=== PATIENT | male | born 1950 | race Caucasian/White ===

== ENCOUNTER 2020-02-14 14:28 | Inpatient (IN) | payer BC, OTHER, MEDICAID, SELFPAY ==
[~2020-02-14] VITALS: Ht 175.3 cm; Wt 74.8 kg
[2020-02-14] MEDS ORDERED: LORazepam 2 MG/ML VIAL IVP ONE (14:45)
[2020-02-14] MEDS ORDERED: levETIRAcetam 1,000 MG IV BAG 100 ML IV ONE (14:45)
[2020-02-14] MEDS ORDERED: NACL 0.9% 1,000 ML IV ONE (14:45)
[2020-02-14 14:56] VITALS: BP_SYST 91
[2020-02-14 15:24] LABS: BASOPHILS # (AUTO) 0.1 K/uL (0.0-0.2); BASOPHILS % (AUTO) 0.4 % (0.0-2.0); EOSINOPHILS % (AUTO) 0.2 % (0.0-4.0); HEMATOCRIT 41.3 % (36-54); HEMOGLOBIN 13.4 g/dL (14.0-18.0); LYMPHOCYTES # (AUTO) 0.5 K/uL (1.0-5.5); LYMPHOCYTES % (AUTO) 3.8 % (20.5-51.5); MEAN CORPUSCULAR HEMOGLOBIN 29 pg (27-31); MEAN CORPUSCULAR HGB CONC 32 % (32-36); MEAN CORPUSCULAR VOLUME 90 fL (79.0-98.0); MONOCYTES # (AUTO) 0.6 K/uL (0.0-1.0); MONOCYTES % (AUTO) 4.2 % (1.7-9.3); NEUTROPHILS # (AUTO) 12.1 K/uL (1.8-7.7); NEUTROPHILS % (AUTO) 91.4 % (40.0-70.0); PLATELET COUNT (AUTO) 284 K/uL (130-430); RED BLOOD CELL COUNT(AUTO) 4.59 MIL/uL (4.2-6.2); RED CELL DISTRIBUTION WIDTH 13.4 % (9.0-15.0); WHITE BLOOD COUNT (AUTO) 13.2 K/uL (4.8-10.8)
[2020-02-14 15:34] LABS: ANION GAP 7 (5-15); CALCIUM 9.4 mg/dL (8.4-11.0); CHLORIDE 101 mmol/L (98-107); GLUCOSE 120 mg/dL (70-99); POTASSIUM 4.6 mmol/L (3.5-5.1); SODIUM SERUM 135 mmol/L (136-145); UREA NITROGEN, BLOOD 20 mg/dL (8-21)
[2020-02-14 15:35] LABS: INR 1.1 (0.80-1.20)
[2020-02-14 15:38] LABS: GFR AFRICAN AMERICAN 108 mL/min (>90)
[2020-02-14 15:40] LABS: ALANINE AMINOTRANSFERASE 27 U/L (12-78); ASPARTATE AMINOTRANSFERASE 15 U/L (10-37); TOTAL BILIRUBIN 0.4 mg/dL (0.0-1.0)
[2020-02-14 15:41] LABS: ALCOHOL, BLOOD < 3 mg/dL (<10)
[2020-02-14] MEDS ORDERED: ENOXAPARIN SODIUM 40 MG/0.4 ML SYRINGE SUBCUT ONE (16:00)
[2020-02-14] MEDS ORDERED: LEVOFLOXACIN 500 MG/D5W 100 ML IV ONE (16:15)
[2020-02-14] MEDS ORDERED: cefTRIAXone 1 GM in D5W 50 ML IV ONE (16:15)
[2020-02-14] MEDS ORDERED: cefTRIAXone 1 GM VIAL ONE (17:10)
[2020-02-14] MEDS ORDERED: ONDANSETRON HCL 4 MG/2 ML VIAL IVP PRN (17:30)
[2020-02-14] MEDS ORDERED: ACETAMINOPHEN 500 MG TABLET PO PRN (17:30)
[2020-02-14] MEDS ORDERED: LORazepam 2 MG/ML VIAL ONE (17:35)
[2020-02-14 22:00] LABS: BILIRUBIN,URINE NEGATIVE (NEGATIVE); BLOOD, URINE 1+ (NEGATIVE); COLOR,URINE YELLOW (YELLOW); GLUCOSE,URINE NEGATIVE (NEGATIVE); KETONES,URINE TRACE (NEGATIVE); LEUKOCYTE ESTERASE ,URINE 2+ (NEGATIVE); NITRITE, URINE POSITIVE (NEGATIVE); PH,URINE 5.5 (5.0-8.0); PROTEIN URINE TRACE (NEGATIVE); UROBILINOGEN,URINE 0.2 (0.2-1.0)
[2020-02-14] MEDS: PIPERACILLIN/TAZO 4.5 GM in NS 100 ML IV SCH (22:00)
[2020-02-14 22:09] LABS: CLARITY/URINE HAZY (CLEAR)
[2020-02-14 22:11] LABS: BARBITURATE, URINE NEGATIVE (NEG <=200); BENZODIAZEPINE, URINE POSITIVE (NEG <=150); CANNABINOID, URINE NEGATIVE (NEG <=50); COCAINE, URINE NEGATIVE (NEG <=150); METHAMPHETAMINES SCREEN,URINE NEGATIVE (NEG <=500); OPIATE, URINE NEGATIVE (NEG <=100); PHENCYCLIDINE SCREEN,URINE NEGATIVE (NEG <=25); UR TRICYCLIC ANTIDEPRESSANTS NEGATIVE (NEG <=300); URINE AMPHETAMINE NEGATIVE (NEG <=500); URINE METHADONE NEGATIVE (NEG <=200); URINE OXYCODONE SCREEN NEGATIVE (NEG <=100); URINE PROPOXYPHENE SCREEN NEGATIVE (NEG <=300)
[2020-02-14 22:12] LABS: BACTERIA,URINE MODERATE /HPF (None Seen); MUCUS,URINE None Seen /LPF (None Seen); WBC,URINE 50-80 /HPF (0-3)
[2020-02-14] MEDS ORDERED: PIPERACILLIN/TAZOBACTAM 4.5 GM/VIAL (ZOSYN) IV ONE (22:14)
[2020-02-14 22:20] VITALS: BP_SYST 114
[2020-02-15] MEDS ORDERED: NACL 0.9% 1,000 ML IV ONE (05:30)
[2020-02-15] MEDS ORDERED: LORazepam 2 MG/ML VIAL IVP PRN (05:30)
[2020-02-15] MEDS ORDERED: IPRA12.9 INH ×2 (07:19)
[2020-02-15] MEDS ORDERED: METO25TA6 GT (07:19)
[2020-02-15] MEDS ORDERED: LEVE100S GT (07:19)
[2020-02-15] MEDS ORDERED: LISI-600 GT (07:19)
[2020-02-15] MEDS ORDERED: FOLI-43 GT (07:19)
[2020-02-15] MEDS ORDERED: MULT-1100 GT (07:19)
[2020-02-15] MEDS ORDERED: FAMO20TA8 GT (07:19)
[2020-02-15] MEDS ORDERED: DIGO125T79 GT (07:19)
[2020-02-15] MEDS ORDERED: LACT1CAP71 GT (07:23)
[2020-02-15] MEDS ORDERED: TERA10CA4 GT (07:23)
[2020-02-15] MEDS ORDERED: ACET-2165 GT (07:23)
[2020-02-15] MEDS ORDERED: AMIN30LI2 GT (07:23)
[2020-02-15] MEDS ORDERED: ASCO500T20 GT (07:23)
[2020-02-15] MEDS ORDERED: ACET-2634 GT (07:23)
[2020-02-15] MEDS ORDERED: levETIRAcetam 500 MG in NS 100 ML IV SCH (09:00)
[2020-02-15] MEDS: KCL 20 mEq in D5/0.45NS 1000mL 1,000 ML IV SCH (10:20)
[2020-02-15] MEDS: PIPERACILLIN/TAZO 4.5 GM in NS 100 ML IV SCH ×3 (10:28→21:28)
[2020-02-15 13:03] LABS: BASOPHILS % (AUTO) 0.7 % (0.0-2.0); EOSINOPHILS % (AUTO) 0.4 % (0.0-4.0); HEMATOCRIT 31.4 % (36-54); HEMOGLOBIN 10.2 g/dL (14.0-18.0); LYMPHOCYTES # (AUTO) 0.7 K/uL (1.0-5.5); LYMPHOCYTES % (AUTO) 11.1 % (20.5-51.5); MEAN CORPUSCULAR HEMOGLOBIN 30 pg (27-31); MEAN CORPUSCULAR HGB CONC 32 % (32-36); MEAN CORPUSCULAR VOLUME 91 fL (79.0-98.0); MONOCYTES # (AUTO) 0.6 K/uL (0.0-1.0); MONOCYTES % (AUTO) 9.4 % (1.7-9.3); NEUTROPHILS # (AUTO) 5.3 K/uL (1.8-7.7); NEUTROPHILS % (AUTO) 78.4 % (40.0-70.0); PLATELET COUNT (AUTO) 191 K/uL (130-430); RED BLOOD CELL COUNT(AUTO) 3.45 MIL/uL (4.2-6.2); RED CELL DISTRIBUTION WIDTH 13.2 % (9.0-15.0)
[2020-02-15 13:07] LABS: WHITE BLOOD COUNT (AUTO) 6.7 K/uL (4.8-10.8)
[2020-02-15 13:24] LABS: CALCIUM 7.6 mg/dL (8.4-11.0); CREATININE 0.62 mg/dL (0.55-1.30); POTASSIUM 3.5 mmol/L (3.5-5.1)
[2020-02-15 13:26] LABS: ALBUMIN 2.3 g/dL (3.4-4.8); TOTAL BILIRUBIN 0.5 mg/dL (0.0-1.0)
[2020-02-15] MEDS ORDERED: ACETAMINOPHEN 500 MG TABLET GT PRN (13:45)
[2020-02-15] MEDS ORDERED: IPRATROPIUM BROM 0.5 MG/2.5 ML VIAL.NEB (ATROVENT) INH PRN (14:15)
[2020-02-15] MEDS ORDERED: FOLIC ACID 1 MG TABLET GT ONE (15:00)
[2020-02-15] MEDS ORDERED: METOPROLOL TARTRATE 25 MG TABLET GT ONE (15:00)
[2020-02-15] MEDS ORDERED: FAMOTIDINE 20 MG TABLET GT ONE (15:00)
[2020-02-15] MEDS ORDERED: ASPIRIN 81 MG TAB.CHEW GT ONE (15:00)
[2020-02-15] MEDS: IPRATROPIUM BROM 0.5 MG/2.5 ML VIAL.NEB (ATROVENT) INH SCH ×2 (16:09→18:47)
[2020-02-15] MEDS: LevETIRAcetam 500 MG/5 ML UDC ORAL LIQUID GT SCH (18:27)
[2020-02-15] MEDS: METOPROLOL TARTRATE 25 MG TABLET GT SCH (20:05)
[2020-02-16] MEDS: KCL 20 mEq in D5/0.45NS 1000mL 1,000 ML IV SCH ×2 (02:30→22:38)
[2020-02-16] MEDS ORDERED: PIPERACILLIN/TAZOBACTAM 4.5 GM/VIAL (ZOSYN) IV ONE (03:00)
[2020-02-16] MEDS ORDERED: KCL 20 mEq in D5/0.45NS 1000mL 1,000 ML IV ONE (03:00)
[2020-02-16] MEDS: LevETIRAcetam 500 MG/5 ML UDC ORAL LIQUID GT SCH ×3 (05:40→12:00)
[2020-02-16] MEDS: PIPERACILLIN/TAZO 4.5 GM in NS 100 ML IV SCH ×3 (05:40→22:38)
[2020-02-16] MEDS: IPRATROPIUM BROM 0.5 MG/2.5 ML VIAL.NEB (ATROVENT) INH SCH ×4 (07:20→19:15)
[2020-02-16 08:00] VITALS: BP_SYST 117
[2020-02-16 08:33] LABS: ALBUMIN 2.6 g/dL (3.4-4.8); CALCIUM 8.9 mg/dL (8.4-11.0); TOTAL BILIRUBIN 0.5 mg/dL (0.0-1.0)
[2020-02-16] MEDS ORDERED: ASPIRIN 81 MG TAB.CHEW PO SCH (09:00)
[2020-02-16 09:06] LABS: CREATININE 0.2 mg/dL (0.55-1.30)
[2020-02-16] MEDS: FOLIC ACID 1 MG TABLET GT SCH (10:03)
[2020-02-16] MEDS: METOPROLOL TARTRATE 25 MG TABLET GT SCH ×2 (10:03→22:36)
[2020-02-16] MEDS: FAMOTIDINE 20 MG TABLET GT SCH (10:03)
[2020-02-16] MEDS: ASPIRIN 81 MG TAB.CHEW GT SCH (10:03)
[2020-02-16 12:00] VITALS: BP_SYST 115
[2020-02-16] MEDS: AMIODARONE HCL 200 MG TABLET PO SCH ×2 (14:00→22:37)
[2020-02-16] MEDS ORDERED: METOPROLOL TARTRATE 5 MG/5 ML VIAL IVP ONE (14:15)
[2020-02-16 16:00] VITALS: BP_SYST 113
[2020-02-16] MEDS ORDERED: METOPROLOL TARTRATE 50 MG TABLET ONE (19:04)
[2020-02-16 20:00] VITALS: BP_SYST 109
[2020-02-16] MEDS: levETIRAcetam 1,500 MG in NS 100 ML IV SCH (22:37)
[2020-02-17 01:02] VITALS: BP_SYST 112
[2020-02-17] MEDS: PIPERACILLIN/TAZO 4.5 GM in NS 100 ML IV SCH (05:02)
[2020-02-17] MEDS: AMIODARONE HCL 200 MG TABLET PO SCH ×3 (05:04→22:10)
[2020-02-17] MEDS: IPRATROPIUM BROM 0.5 MG/2.5 ML VIAL.NEB (ATROVENT) INH SCH ×4 (07:13→19:20)
[2020-02-17 07:30] LABS: ALBUMIN 2.5 g/dL (3.4-4.8); CALCIUM 8.5 mg/dL (8.4-11.0); CREATININE 0.73 mg/dL (0.55-1.30); POTASSIUM 3.6 mmol/L (3.5-5.1); TOTAL BILIRUBIN 0.4 mg/dL (0.0-1.0)
[2020-02-17 07:53] LABS: BASOPHILS # (AUTO) 0.1 K/uL (0.0-0.2); BASOPHILS % (AUTO) 0.6 % (0.0-2.0); EOSINOPHILS # (AUTO) 0.1 K/uL (0.0-0.4); HEMATOCRIT 36.3 % (36-54); HEMOGLOBIN 12.1 g/dL (14.0-18.0); LYMPHOCYTES % (AUTO) 10.3 % (20.5-51.5); MEAN CORPUSCULAR HEMOGLOBIN 30 pg (27-31); MEAN CORPUSCULAR HGB CONC 33 % (32-36); MEAN CORPUSCULAR VOLUME 91 fL (79.0-98.0); MONOCYTES # (AUTO) 1.2 K/uL (0.0-1.0); MONOCYTES % (AUTO) 11.9 % (1.7-9.3); NEUTROPHILS # (AUTO) 7.4 K/uL (1.8-7.7); NEUTROPHILS % (AUTO) 76.2 % (40.0-70.0); PLATELET COUNT (AUTO) 246 K/uL (130-430); RED CELL DISTRIBUTION WIDTH 13.5 % (9.0-15.0); WHITE BLOOD COUNT (AUTO) 9.7 K/uL (4.8-10.8)
[2020-02-17 08:00] VITALS: BP_SYST 131
[2020-02-17] MEDS: FAMOTIDINE 20 MG TABLET GT SCH (08:15)
[2020-02-17] MEDS: ASPIRIN 81 MG TAB.CHEW GT SCH (08:15)
[2020-02-17] MEDS: METOPROLOL TARTRATE 25 MG TABLET GT SCH ×2 (08:15→22:11)
[2020-02-17] MEDS: FOLIC ACID 1 MG TABLET GT SCH (08:15)
[2020-02-17] MEDS: levETIRAcetam 1,500 MG in NS 100 ML IV SCH ×2 (09:56→22:09)
[2020-02-17 10:53] VITALS: BP_SYST 132
[2020-02-17 11:26] VITALS: BP_SYST 132
[2020-02-17] MEDS: MEROPENEM 1 GM in NS 100 ML IV SCH ×2 (14:23→22:09)
[2020-02-17 15:31] VITALS: BP_SYST 116
[2020-02-17 20:00] VITALS: BP_SYST 157
[2020-02-18] VITALS (11 sets, daily range): BP systolic 103–158
[2020-02-18] MEDS: AMIODARONE HCL 200 MG TABLET PO SCH ×3 (06:11→21:34)
[2020-02-18] MEDS: MEROPENEM 1 GM in NS 100 ML IV SCH ×3 (06:11→21:34)
[2020-02-18] MEDS: IPRATROPIUM BROM 0.5 MG/2.5 ML VIAL.NEB (ATROVENT) INH SCH ×4 (07:23→19:10)
[2020-02-18] MEDS: ASPIRIN 81 MG TAB.CHEW GT SCH (08:08)
[2020-02-18] MEDS: METOPROLOL TARTRATE 25 MG TABLET GT SCH ×2 (08:08→21:33)
[2020-02-18] MEDS: FOLIC ACID 1 MG TABLET GT SCH (08:08)
[2020-02-18] MEDS: FAMOTIDINE 20 MG TABLET GT SCH (08:08)
[2020-02-18] MEDS: levETIRAcetam 1,500 MG in NS 100 ML IV SCH ×2 (09:37→21:25)
[2020-02-18] MEDS ORDERED: NS IRRIG SOLN 1000 ML IR ONE (18:15)
[2020-02-18] MEDS ORDERED: LIDOCAINE 1% 10 MG/ML, 20 ML MDV INJ ONE (18:15)
[2020-02-18] MEDS ORDERED: ONDANSETRON HCL 4 MG/2 ML VIAL IVP PRN (18:45)
[2020-02-18] MEDS ORDERED: KETOROLAC TROMETHAMINE 30 MG VIAL IM PRN (18:45)
[2020-02-19] VITALS: BP_SYST 136
[2020-02-19] MEDS: MEROPENEM 1 GM in NS 100 ML IV SCH ×2 (05:32→14:23)
[2020-02-19] MEDS: AMIODARONE HCL 200 MG TABLET PO SCH ×2 (05:33→14:33)
[2020-02-19] MEDS: IPRATROPIUM BROM 0.5 MG/2.5 ML VIAL.NEB (ATROVENT) INH SCH ×3 (07:07→16:02)
[2020-02-19 07:15] LABS: BASOPHILS # (AUTO) 0.1 K/uL (0.0-0.2); BASOPHILS % (AUTO) 0.8 % (0.0-2.0); EOSINOPHILS # (AUTO) 0.1 K/uL (0.0-0.4); EOSINOPHILS % (AUTO) 1.3 % (0.0-4.0); HEMATOCRIT 39.3 % (36-54); HEMOGLOBIN 12.7 g/dL (14.0-18.0); LYMPHOCYTES # (AUTO) 1.7 K/uL (1.0-5.5); LYMPHOCYTES % (AUTO) 16.6 % (20.5-51.5); MEAN CORPUSCULAR HEMOGLOBIN 30 pg (27-31); MEAN CORPUSCULAR HGB CONC 32 % (32-36); MEAN CORPUSCULAR VOLUME 91 fL (79.0-98.0); MONOCYTES # (AUTO) 1.1 K/uL (0.0-1.0); MONOCYTES % (AUTO) 10.9 % (1.7-9.3); NEUTROPHILS # (AUTO) 7.3 K/uL (1.8-7.7); NEUTROPHILS % (AUTO) 70.4 % (40.0-70.0); PLATELET COUNT (AUTO) 259 K/uL (130-430); RED BLOOD CELL COUNT(AUTO) 4.29 MIL/uL (4.2-6.2); RED CELL DISTRIBUTION WIDTH 13.8 % (9.0-15.0); WHITE BLOOD COUNT (AUTO) 10.4 K/uL (4.8-10.8)
[2020-02-19 07:24] LABS: CALCIUM 9.2 mg/dL (8.4-11.0); CREATININE 0.72 mg/dL (0.55-1.30); POTASSIUM 4.4 mmol/L (3.5-5.1)
[2020-02-19 08:00] VITALS: BP_SYST 135
[2020-02-19] MEDS: METOPROLOL TARTRATE 25 MG TABLET GT SCH (08:50)
[2020-02-19] MEDS: ASPIRIN 81 MG TAB.CHEW GT SCH (08:51)
[2020-02-19] MEDS: FOLIC ACID 1 MG TABLET GT SCH (08:51)
[2020-02-19] MEDS: FAMOTIDINE 20 MG TABLET GT SCH (08:51)
[2020-02-19] MEDS: levETIRAcetam 1,500 MG in NS 100 ML IV SCH (08:52)
[2020-02-19 12:00] VITALS: BP_SYST 108
[2020-02-19 14:35] VITALS: BP_SYST 136
[2020-02-19 15:23] VITALS: BP_SYST 136
[2020-02-19] MEDS ORDERED: AMI200 GT (15:36)
[2020-02-19] MEDS ORDERED: SULF1TAB48 GT (15:37)
[2020-02-19] MEDS ORDERED: LEVO750T45 GT (15:38)
[2020-02-19 16:32] VITALS: BP_SYST 123
== END 2020-02-19 17:50 | DRG 570 ==
LOC: SED 14:28 → STU 17:30
PROVIDERS: ADMIT Family Medicine; ATTEND Internal Medicine
PROC: 0JBD0ZZ Excision of Right Upper Arm Subcutaneous Tissue and Fascia, Open Approach (ICD-10-PCS; principal; 2020-02-18 18:15)
DX: L02.413 Cutaneous abscess of right upper limb (principal); J18.9 Pneumonia, unspecified organism; J96.21 Acute and chronic respiratory failure with hypoxia; E43 Unspecified severe protein-calorie malnutrition; L02.212 Cutaneous abscess of back [any part, except buttock and flank]; J91.8 Pleural effusion in other conditions classified elsewhere; N39.0 Urinary tract infection, site not specified; Z16.12 Extended spectrum beta lactamase (ESBL) resistance; G40.909 Epilepsy, unspecified, not intractable, without status epilepticus; I10 Essential (primary) hypertension; I48.91 Unspecified atrial fibrillation; B96.20 Unspecified Escherichia coli [E. coli] as the cause of diseases classified elsewhere; L72.3 Sebaceous cyst; R13.10 Dysphagia, unspecified; Z20.828 Contact with and (suspected) exposure to other viral communicable diseases; Z74.01 Bed confinement status; Z79.01 Long term (current) use of anticoagulants; Z86.73 Personal history of transient ischemic attack (TIA), and cerebral infarction without residual deficits; Z93.0 Tracheostomy status; Z98.2 Presence of cerebrospinal fluid drainage device; Z68.24 Body mass index [BMI] 24.0-24.9, adult
CPT/HCPCS: 36415; 36600; 70450-TC; 71045; 76604; 80048; 80053; 80307; 81000-TC; 82542; 82803-TC; 83605; 83880; 84443-TC; 84484; 85025; 85610-TC; 85730-TC; 86140; 87040-TC; 87070-TC; 87075-TC; 87081; 87086; 87186-TC; 88304; 88305; 93005; 94640; 94760; 96365; 96368; 96372; 96375; 99285; G0378; G0482; J0696; J1650; J1953; J1956; J2001; J2060; J2185; J2543; J3490; J7030; J7040; U0003-CS